=== PATIENT | female | born 1980 | race African-American/Black ===

== ENCOUNTER 2019-02-06 09:29 | Emergency (ER) | payer OTHER ==
[~2019-02-06] VITALS: Ht 175.3 cm; Wt 150.0 kg
[2019-02-06] MEDS ORDERED: KETOROLAC 60MG/2ML VIAL IM ONE (11:15)
[2019-02-06] MEDS ORDERED: ACETAMINOPHEN WITH CODEINE 300/30MG TABLET PO ONE (11:15)
[2019-02-06 11:42] VITALS: BP 166/98
== END 2019-02-06 13:02 | disposition home or self-care (01) ==
LOC: ER 10:02
DX: M25.552 Pain in left hip (principal); E11.9 Type 2 diabetes mellitus without complications; F17.210 Nicotine dependence, cigarettes, uncomplicated
CPT/HCPCS: 73502; 81025; 96372; 99283; J1885

== ENCOUNTER 2019-07-26 16:30 | Emergency (ER) | payer OTHER ==
[~2019-07-26] VITALS: Ht 172.7 cm; Wt 154.0 kg
[2019-07-26] MEDS ORDERED: PREDNISONE 20MG TABLET PO STA (17:35)
[2019-07-26] MEDS ORDERED: IPRATROPIUM BROMIDE (0.02%) 0.5MG/2.5ML NEB HHN STA (17:35)
[2019-07-26] MEDS ORDERED: ALBUTEROL (0.083%) 2.5MG/3ML NEB HHN STA (17:35)
[2019-07-26 17:52] LABS: CHLORIDE 106 mEq/L (98-107)
[2019-07-26 18:00] LABS: BASOPHILS % 0.3 % (0.0-2.0); EOSINOPHILS % 3.3 % (0.0-5.0); HEMATOCRIT. 38.5 % (36.0-48.0); HEMOGLOBIN. 12.4 g/dL (12.0-16.0); LYMPHOCYTES % 16.8 % (20.0-50.0); MEAN CORPUSCULAR HEMOGLOBIN 27.1 pg (28.0-32.0); MEAN CORPUSCULAR VOLUME 83.9 fL (81.0-99.0); MEAN PLATELET VOLUME 9.3 fl (7.4-10.4); MONOCYTES % 6.1 % (2.0-8.0); NEUTROPHILS % 73.5 % (40.0-76.0); PLATELET 317 x1000/uL (130-400); RED BLOOD CELL COUNT 4.59 mill/uL (4.2-5.4); RED CELL DISTRIBUTION WIDTH 16.2 % (11.6-14.6)
[2019-07-26 20:18] VITALS: BP 139/65
== END 2019-07-26 20:43 | disposition home or self-care (01) ==
LOC: ER 16:30
DX: J45.901 Unspecified asthma with (acute) exacerbation (principal); R50.81 Fever presenting with conditions classified elsewhere; F12.10 Cannabis abuse, uncomplicated
CPT/HCPCS: 36415; 71045; 80053; 84484; 85025; 87804; 93005; 94640; 99284; J7512; J7611; Z7610

== ENCOUNTER 2019-08-25 08:01 | Emergency (ER) | payer OTHER ==
[~2019-08-25] VITALS: Ht 172.7 cm; Wt 116.0 kg
[2019-08-25 12:10] VITALS: BP 122/84
== END 2019-08-25 12:28 | disposition home or self-care (01) ==
LOC: ER 08:15
DX: J42 Unspecified chronic bronchitis (principal); B34.9 Viral infection, unspecified; E11.9 Type 2 diabetes mellitus without complications; F12.10 Cannabis abuse, uncomplicated
CPT/HCPCS: 71045; 87804; 99284